=== PATIENT | male | born 1985 | race African-American/Black ===

== ENCOUNTER 2023-06-24 14:34 | Emergency (ER) | payer MEDICAID ==
[~2023-06-24] VITALS: Ht 188 cm; Wt 122.0 kg
[2023-06-24 15:08] VITALS: BP 121/58; PULSE 100; RESP 18; TEMP 98.5; O2SAT 99
[2023-06-24] MEDS ORDERED: TETANUS, DIPHTHERIA, PERTUSSIS VAC/PF 0.5ML (>10YR OLD) IM ONE (15:45)
[2023-06-24] MEDS ORDERED: BACITRACIN ZINC OINT UDPKT TOP ONE (15:45)
[2023-06-24] MEDS ORDERED: LIDOCAINE HCL/PF 1% 10 MG/ML 5ML VIAL INFIL ONE (15:45)
[2023-06-24] MEDS ORDERED: AMOX1TAB16 MT (17:43)
[2023-06-24] MEDS ORDERED: NAPR375T5 MT (17:44)
== END 2023-06-24 19:04 | disposition home or self-care (01) ==
LOC: ER 14:34
DX: K04.7 Periapical abscess without sinus (principal)
CPT/HCPCS: 90715; 10060; 90471; 99283; J3490; Z7610 ×3